=== PATIENT | male | born 1995 | race Caucasian/White ===

== ENCOUNTER 2017-11-30 17:09 | Emergency (ER) | payer OTHER ==
[~2017-11-30] VITALS: Ht 160 cm; Wt 59.0 kg
[2017-11-30] MEDS ORDERED: LIDOCAINE 2% VISCOUS 15 ML UDC PO ONE (17:30)
[2017-11-30] MEDS ORDERED: HYOSCYAMINE 0.125 MG (LEVSIN) TAB SL ONE (17:30)
[2017-11-30] MEDS ORDERED: ANTACID SUSP 30 ML UDC (MYLANTA) PO ONE (17:30)
[2017-11-30] MEDS ORDERED: ONDANSETRON 4 MG (ZOFRAN) ORAL DISSOLVE TAB SL STA (18:29)
[2017-11-30] MEDS ORDERED: ONDA4TAB11 PO (18:36)
[2017-11-30] MEDS ORDERED: SUCR1ORA5 PO (18:36)
--- NOTE | 2017-11-30 18:38 | ED EENT ---
History of Present Illness General Chief Complaint: Oral/Throat Problems Stated Complaint: FOOD STUCK IN THROAT Nursing Triage Note: PT HERE WITH C/O A PIECE OF CHICKEN STUCK IN HIS THROAT FOR 2 DAYS. History of Present Illness Date Seen by Provider: Nov 30, 2017 Time Seen by Provider: 17:30 Initial Comments 22-year-old male seen for food bolus in throat. He reports 2 days ago he was eating chicken and he felt a piece get stuck in his throat. Today he began vomiting and feels like the chicken moved but he can still since something in his throat. He is able to breathe with no difficulty and swallow food and liquids. He has not tried any medications for this and has never had similar symptoms. Timing/Duration: abrupt Location: throat Prearrival Treatment: no prearrival treatment Associated Symptoms: denies symptoms, No cough, No drooling, No sore throat, No voice change Allergies and Home Medications Allergies Coded Allergies: Penicillins (Verified Allergy, Unknown, 11/30/17) Home Medications Ondansetron 4 Mg Tab.rapdis, 4 MG PO Q6H PRN for NAUSEA/VOMITING-1ST LINE, #8 Ref 0 Prescribed by: MARCIO KAY on 11/30/17 183 Sucralfate 1 Gm/10 Ml Oral.susp, 1 GM PO QID, #100 Ref 0 Prescribed by: MARCIO KAY on 11/30/17 183 Review of Systems Constitutional: no symptoms reported, see HPI Throat: see HPI, other (sensation of food bolus in throat) Past Dhzdtbe-Wctngp-Xjzrdx Hx Patient Social History Recent Foreign Travel: No Contact w/Someone Who Travel: No Recent Infectious Disease Expo: No Recent Hopitalizations: No Seasonal Allergies Seasonal Allergies: No Surgeries History of Surgeries: No Respiratory History of Respiratory Disorde: No Cardiovascular History of Cardiac Disorders: No Neurological History of Neurological Disord: No Reproductive System Sexually Transmitted Disease: No HIV/AIDS: No Genitourinary History of Genitourinary Disor: No Gastrointestinal History of Gastrointestinal Di: No Musculoskeletal History of Musculoskeletal Dis: No Endocrine History of Endocrine Disorders: No HEENT History of HEENT Disorders: No Cancer History of Cancer: No Psychosocial History of Psychiatric Problem: No Integumentary History of Skin or Integumenta: No Blood Transfusions History of Blood Disorders: No Adverse Reaction to a Blood Tr: No Reviewed Nursing Assessment Reviewed/Agree w Nursing PMH: Yes Physical Exam Vital Signs Vital Signs - First Documented 11/30/17 17:15 Temp 97.8 Pulse 128 Resp 18 B/P (MAP) 116/86 (96) Pulse Ox 98 O2 Delivery Room Air General Appearance: WD/WN, no apparent distress Nose: normal inspection, No active bleeding, No discharge, other (nares patent) Mouth/Throat: normal mouth inspection, pharynx normal Neck: non-tender, full range of motion, supple, normal inspection Cardiovascular: normal peripheral pulses, regular rate, rhythm Respiratory: chest non-tender, lungs clear, normal breath sounds Gastrointestinal: normal bowel sounds, non tender, soft Neurologic/Psychiatric: no motor/sensory deficits, alert, normal mood/affect, oriented x 3 Skin: normal color, warm/dry Progress/Results/Core Measures Results/Orders My Orders Orders - MARCIO KAY Lidocaine 2% Viscous 15 Ml (Xylocaine Vi (11/30/17 17:30) Antacid Suspension (Mylanta Suspension (11/30/17 17:30) Hyoscyamine Sl Tablet (Levsin Sl Tablet) (11/30/17 17:30) Ondansetron Oral Dissolve Tab (Zofran (11/30/17 18:29) Medications Given in ED Current Medications Medications Dose Ordered Sig/Lazaro Route Start Time Stop Time Status Last Admin Dose Admin Al Hydrox/Mg Hydrox/Simethicone 30 ml ONCE ONCE PO 11/30/17 17:30 11/30/17 17:31 DC 11/30/17 17:40 30 ML Hyoscyamine Sulfate 0.125 mg ONCE ONCE SL 11/30/17 17:30 18 17:31 DC 11/30/17 17:40 0.125 MG Lidocaine HCl 15 ml ONCE ONCE PO 11/30/17 17:30 18 17:31 DC 11/30/17 17:40 15 ML Vital Signs/I&O Vital Sign - Last 12Hours 11/30/17 11/30/17 17:15 18:58 Temp 97.8 97.8 Pulse 128 100 Resp 18 18 B/P (MAP) 116/86 (96) 116/63 (96) Pulse Ox 98 98 O2 Delivery Room Air Blood Pressure Mean: 96 Progress Note : Time: 17:30 Progress Note Initial evaluation completed, recommended labs sent and GI cocktail. Will reevaluate. 1800 patient does not feel as though the food bolus has moved. Continues to have mild nausea, Zofran 4 mg by mouth. [address] Jarvis by phone, recommended trying carefully and reevaluation tomorrow in his office if continued symptoms to schedule EGD. 184 discharge instructions and return precautions reviewed with the patient. All questions answered. Departure Impression Impression: Primary Impression: Bolus impaction of digestive tract Disposition: HOME, SELF-CARE Condition: Stable Departure-Patient Inst. Decision time for Depature: 18:30 Referrals: [facility] (PCP) Primary Care Physician LUDY MCFARLANE MD (Family) Primary Care Physician Patient Instructions: Food Obstruction Add. Discharge Instructions: Increase oral intake and eat soft foods. Return to emergency department if difficulty breathing, inability to swallow food, increased pain or new problems. Call Dr. Jarvis's office tomorrow, [phone] for appointment. All discharge instructions reviewed with patient and/or family. Voiced understanding. Scripts Ondansetron (Ondansetron Odt) 4 Mg Tab.rapdis 4 MG PO Q6H Y for NAUSEA/VOMITING-1ST LINE, #8 TAB 0 Refills Prov: MARCIO KYA 11/30/17 Sucralfate (Carafate) 1 Gm/10 Ml Oral.susp 1 GM PO QID, #100 ML 0 Refills Prov: MARCIO KAY 11/30/17 Copy Copies To 1: LUDY MCFARLANE MD Copies To 2: MICHAEL JARVIS AMY ARNP Nov 30, 2017 18:38
[2017-11-30 18:58] VITALS: BP 116/63
== END 2017-11-30 18:58 | disposition home or self-care (01) ==
LOC: ER 17:12
DX: T18.128A Food in esophagus causing other injury, initial encounter (principal); Z88.0 Allergy status to penicillin
CPT/HCPCS: 99283

== ENCOUNTER → 2017-12-02 | Outpatient (CLI) | payer OTHER ==
[~2017-12-02] MED LIST: ONDA4TAB11 PO; SUCR1ORA5 PO
== END ==
LOC: PREOP 08:59
PROVIDERS: ATTEND Surgery
DX: Z01.818 Encounter for other preprocedural examination (principal); R13.10 Dysphagia, unspecified

== ENCOUNTER 2017-12-07 12:23 | Day surgery (SDC) | payer OTHER ==
[~2017-12-07] VITALS: Ht 160 cm; Wt 59.0 kg
[2017-12-07] MEDS ORDERED: LACTATED RINGERS 1,000 ML IV ONE (12:43)
[2017-12-07] MEDS ORDERED: LACTATED RINGERS 1,000 ML IV STA (12:58)
[2017-12-07] MEDS ORDERED: HURRICAINE EXT TUBE (BENZOCAINE) XX PRN (13:00)
[2017-12-07] MEDS ORDERED: MIDAZOLAM 5 MG/5 ML (VERSED) VIAL ONE (13:04)
[2017-12-07] MEDS ORDERED: proPOfol 200 MG/20 ML (DIPRIVAN) VIAL IV ONE (13:04)
--- NOTE | 2017-12-07 13:07 | Progress Note-Pre Operative ---
Pre-Operative Progress Note H&P Reviewed The H&P was reviewed, patient examined and no changes noted. Date Seen by Provider: Dec 07, 2017 Time Seen by Provider: 13:07 Date H&P Reviewed: Dec 07, 2017 Time H&P Reviewed: 13:07 Pre-Operative Diagnosis: dysphagia MICHAEL LLOYD DO Dec 07, 2017 13:07
--- NOTE | 2017-12-07 13:30 | Progress Note-Post Operative ---
Post-Operative Progess Note Surgeon (s)/Packer And Carry Out (s) Surgeon MICHAEL LLOYD DO Packer And Carry Out: na Pre-Operative Diagnosis dysphagia Post-Operative Diagnosis reflux esophagitis Procedure & Operative Findings Date of Procedure 12/07/17 Procedure Performed/Findings egd c biopsies Anesthesia Type per ironer sock Estimated Blood Loss Estimated blood loss (mL): none Specimens/Packing Specimens Removed antrum, ge junction MICHAEL LLOYD DO Dec 07, 2017 13:30
[2017-12-07] MEDS ORDERED: PANT40TA2 PO (13:31)
--- NOTE | 2017-12-07 13:32 | Discharge Inst-Simple/Standard ---
Discharge Inst-Standard Discharge Medications New, Converted or Re-Newed RX: Transmitted to Pharmacy Patient Instructions/Follow Up Plan of Care/Instructions/FU: 2 weeks Matheus Activity as Tolerated: Yes Discharge Diet: Regular Diet MICHAEL LLOYD DO Dec 07, 2017 13:32
[2017-12-07] MEDS ORDERED: HURRICAINE EXT TUBE (BENZOCAINE) ONE (13:40)
[2017-12-07 13:55] VITALS: BP 103/55
[2017-12-07 14:15] VITALS: BP 109/68
[2017-12-07 14:17] VITALS: BP 118/70
--- NOTE | 2017-12-07 14:18 | Anesthesia-General Post-Op ---
MAC Patient Condition Mental Status/LOC: Same as Preop Cardiovascular: Satisfactory Nausea/Vomiting: Absent Respiratory: Satisfactory Pain: Controlled Complications: Absent Post Op Complications Complications None Follow Up Care/Instructions Patient Instructions None needed. Anesthesiology Discharge Order Discharge Order Patient is doing well, no complaints, stable vital signs, no apparent adverse anesthesia problems. No complications reported per nursing. MELINDA IZAGUIRRE CRNA Dec 07, 2017 14:18
[2017-12-07 14:29] VITALS: BP 118/70
--- NOTE | 2017-12-07 17:59 | OPERATIVE REPORT ---
DATE OF SERVICE: 12/07/2017 PREOPERATIVE DIAGNOSIS: Dysphagia. POSTOPERATIVE DIAGNOSIS: Reflux esophagitis. PROCEDURE PERFORMED: EGD with biopsies. SURGEON: Michael Jarvis DO. ANESTHESIA: Per NEIGHBORHOOD COORDINATOR. ESTIMATED BLOOD LOSS: None. COMPLICATIONS: None. INDICATIONS: The patient is a 22-year-old male with recent history of dysphagia. He understands risks and benefits of procedure and wished to proceed with procedure. Consent was signed and in the chart. DESCRIPTION OF PROCEDURE: The patient was taken to the endoscopy suite, placed in left lateral recumbent position. Timeout was performed. Scope was inserted in mouth, down into esophagus, stomach and into the duodenum without difficulty. There were no polyps, masses or ulcerations within the duodenum. The scope was slowly retracted back into the stomach, which was further insufflated. Some slight erythematous changes present in the stomach where biopsy of the antrum was obtained. Scope was retroflexed noting no other pathology. Scope was returned to its normal position, slowly withdrawn to the distal esophagus which had some slight erythematous changes. Biopsy of the GE junction was obtained. The changes appeared to be reflux esophagitis. Scope was then slowly retracted back until completely removed, noting no other pathologies. The patient tolerated procedure well without any complications and was taken to recovery room in stable condition. RECOMMENDATIONS: The patient will be started on Protonix 40 mg. We will keep him on the Carafate. We will see him back in 2 weeks. Follow up on pathology. If he has any worsening of symptoms, he should be seen at that time. Job ID: [id number] DocumentID: [id number] Dictated Date: 12/07/2017 13:34:31 Commercial Mortgage Broker Date: 12/07/2017 17:59:01 Dictated By: MICHAEL JARVIS DO
== END 2017-12-07 14:35 | disposition home or self-care (01) ==
LOC: ENDO 12:23
PROVIDERS: ATTEND Surgery
DX: K21.0 Gastro-esophageal reflux disease with esophagitis (principal); Z88.0 Allergy status to penicillin; Z88.1 Allergy status to other antibiotic agents; Z87.891 Personal history of nicotine dependence

== ENCOUNTER 2019-06-26 17:21 | Emergency (ER) | payer SELFPAY ==
[~2019-06-26] VITALS: Ht 175.2 cm; Wt 60.0 kg
[~2019-06-26 17:21] MED LIST changes: +PANT40TA2 PO
[2019-06-26] MEDS ORDERED: LACTATED RINGERS 1,000 ML IV ONE (17:32)
--- NOTE | 2019-06-26 17:39 | ED General ---
General Stated Complaint: LIGHTHEADED,SOB Source of Information: Patient History of Present Illness Date Seen by Provider: Jun 26, 2019 Time Seen by Provider: 17:25 Initial Comments PT ARRIVES VIA POV STATES HE WAS AT WORK ( [employer] ), WAS ON [employer] AND WEED EATING, AND AROUND 1445, HE BEGAN TO FEEL LIGHTHEADED, THEN HIS FACE GOT TINGLY, THEN HE COULDN'T TALK, AND STARTED CRYING AND GETTING VERY EMOTIONAL, AND STARTED HAVING A HARD TIME BREATHING, FELT LIKE HE WAS GOING TO PASS OUT--"GOING IN AND OUT OF IT" STATES [place] COMES IN [place] STATES THEN HE STARTED DRINKING WATER, AND THEN HE STARTED SHAKING ALL OVER STATES SYMPTOMS ARE MUCH BETTER NOW THAN HE WAS 20 MINUTES AGO. NO HISTORY OF SIMILAR ADAMANTLY DENIES ANY MEDICATION OR DRUG USE. DENIES ANY USUAL STRESSORS ACTIVITIES TODAY ARE NORMAL FOR HIM. [employer], FROM [place], [place] Allergies and Home Medications Allergies Coded Allergies: Penicillins (Verified Allergy, Unknown, 11/30/17) Home Medications Ondansetron 4 Mg Tab.rapdis, 4 MG PO Q6H PRN for NAUSEA/VOMITING-1ST LINE Prescribed by: MARCIO KAY on 11/30/17 1836 Pantoprazole Sodium 40 Mg Tablet.dr, 40 MG PO DAILY Prescribed by: MICHAEL LLOYD on 12/07/17 1331 Sucralfate 1 Gm/10 Ml Oral.susp, 1 GM PO QID Prescribed by: MARCIO KAY on 11/30/17 1836 Patient Home Medication List Home Medication List Reviewed: Yes Review of Systems Review of Systems Constitutional: see HPI, dizziness EENTM: no symptoms reported Respiratory: see HPI, short of breath Cardiovascular: no symptoms reported Gastrointestinal: no symptoms reported Genitourinary: no symptoms reported Musculoskeletal: no symptoms reported Skin: no symptoms reported Psychiatric/Neurological: See HPI Hematologic/Lymphatic: No Symptoms Reported Immunological/Allergic: no symptoms reported Past Pddsijs-Lnrvqa-Zsdusg Hx Patient Social History Alcohol Use: Regular Use Recreational Drug Use: Yes (THC, AMPHETAMINES/"ADDERALL", COCAINE) Drug of Choice: THC, AMPHETAMINES/"ADDERALL" , COCAINE Smoking Status: Current Someday Smoker Type Used: Cigarettes Recent Foreign Travel: No Contact w/Someone Who Travel: No Recent Hopitalizations: No Seasonal Allergies Seasonal Allergies: No Past Medical History Surgeries: No Respiratory: No Cardiac: No Neurological: No Reproductive Disorders: No Genitourinary: No Gastrointestinal: No Musculoskeletal: No Endocrine: No HEENT: No Cancer: No Psychosocial: No Integumentary: No Blood Disorders: No Adverse Reaction/Blood Tranf: No Physical Exam Vital Signs Vital Signs - First Documented 06/26/19 17:26 Temp 37.3 Pulse 93 Resp 18 B/P (MAP) 141/76 (97) Pulse Ox 98 O2 Delivery Room Air Capillary Refill : Height, Weight, BMI Height: 5'3.00" Weight: 130lbs. 0.0oz. 58.618606dw; 23.0 BMI Method:Stated General Appearance: No Apparent Distress, Anxious (VERY ANXIOUS, TALKING VERY RAPIDLY AND NON-STOP AT GREAT LENGTH), Thin, Other (CONSTANT MOVEMENTS, CANNOT SIT OR LAY STILL) Neck: Full Range of Motion, Normal Inspection, Non Tender, Supple Respiratory: Normal Breath Sounds, No Accessory Muscle Use, No Respiratory Distress Cardiovascular: Regular Rate, Rhythm, No Edema, No JVD, No Murmur, Normal Peripheral Pulses Gastrointestinal: Normal Bowel Sounds, No Organomegaly, No Pulsatile Mass, Non Tender, Soft Back: No CVA Tenderness Extremity: Normal Capillary Refill, Normal Inspection, Normal Range of Motion, Non Tender, No Calf Tenderness, No Pedal Edema Neurologic/Psychiatric: Alert, Oriented x3, No Motor/Sensory Deficits, floor finisher helper II- XII Norm as Tested Skin: Normal Color, Warm/Dry Progress/Results/Core Measures Suspected Sepsis SIRS Temperature: Pulse: Respiratory Rate: Laboratory Tests 06/26/19 17:34: White Blood Count 10.9 Blood Pressure / Mean: Laboratory Tests 06/26/19 17:34: Creatinine 1.23, Platelet Count 372, Total Bilirubin 1.1H Results/Orders Lab Results Laboratory Tests Test 06/26/19 17:34 06/26/19 17:42 Range/Units White Blood Count 10.9 4.3-11.0 10^3/uL Red Blood Count 5.44 4.35-5.85 10^6/uL Hemoglobin 15.8 13.3-17.7 G/DL Hematocrit 45 40-54 % Mean Corpuscular Volume 83 80-99 FL Mean Corpuscular Hemoglobin 29 25-34 PG Mean Corpuscular Hemoglobin Concent 35 32-36 G/DL Red Cell Distribution Width 12.8 10.0-14.5 % Platelet Count 372 130-400 10^3/uL Mean Platelet Volume 9.8 7.4-10.4 FL Neutrophils (%) (Auto) 67 42-75 % Lymphocytes (%) (Auto) 22 12-44 % Monocytes (%) (Auto) 9 0-12 % Eosinophils (%) (Auto) 1 0-10 % Basophils (%) (Auto) 1 0-10 % Neutrophils # (Auto) 7.3 1.8-7.8 X 10^3 Lymphocytes # (Auto) 2.4 1.0-4.0 X 10^3 Monocytes # (Auto) 1.0 0.0-1.0 X 10^3 Eosinophils # (Auto) 0.1 0.0-0.3 10^3/uL Basophils # (Auto) 0.1 0.0-0.1 10^3/uL Sodium Level 139 135-145 MMOL/L Potassium Level 3.9 3.6-5.0 MMOL/L Chloride Level 104 98-107 MMOL/L Carbon Dioxide Level 23 21-32 MMOL/L Anion Gap 12 5-14 MMOL/L Blood Urea Nitrogen 16 7-18 MG/DL Creatinine 1.23 0.60-1.30 MG/DL Estimat Glomerular Filtration Rate > 60 BUN/Creatinine Ratio 13 Glucose Level 80 70-105 MG/DL Calcium Level 9.7 8.5-10.1 MG/DL Corrected Calcium 8.5-10.1 MG/DL Magnesium Level 1.8 1.6-2.4 MG/DL Total Bilirubin 1.1 H 0.1-1.0 MG/DL Aspartate Amino Transf (AST/SGOT) 25 5-34 U/L Alanine Aminotransferase (ALT/SGPT) 14 0-55 U/L Alkaline Phosphatase 64 40-136 U/L Total Protein 7.5 6.4-8.2 GM/DL Albumin 4.8 H 3.2-4.5 GM/DL TSH Bartholomew Testing 2.23 0.35-4.94 UIU/ML Serum Alcohol < 10 <10 MG/DL Urine Color YELLOW Urine Clarity CLEAR Urine pH 7 5-9 Urine Specific [place] 1.010 L 1.016-1.022 Urine Protein 2+ H NEGATIVE Urine Glucose (UA) NEGATIVE NEGATIVE Urine Ketones NEGATIVE NEGATIVE Urine Nitrite NEGATIVE NEGATIVE Urine Bilirubin NEGATIVE NEGATIVE Urine Urobilinogen NORMAL NORMAL MG/DL Urine Leukocyte Esterase NEGATIVE NEGATIVE Urine RBC (Auto) NEGATIVE NEGATIVE Urine RBC NONE /HPF Urine WBC NONE /HPF Urine Squamous Epithelial Cells RARE /HPF Urine Crystals NONE /LPF Urine Bacteria TRACE /HPF Urine Casts NONE /LPF Urine Mucus MODERATE H /LPF Urine Culture Indicated NO Urine Opiates Screen NEGATIVE NEGATIVE Urine Oxycodone Screen NEGATIVE NEGATIVE Urine Methadone Screen NEGATIVE NEGATIVE Urine Propoxyphene Screen NEGATIVE NEGATIVE Urine Barbiturates Screen NEGATIVE NEGATIVE Ur Tricyclic Antidepressants Screen NEGATIVE NEGATIVE Urine Phencyclidine Screen NEGATIVE NEGATIVE Urine Amphetamines Screen POSITIVE H NEGATIVE Urine Methamphetamines Screen NEGATIVE NEGATIVE Urine Benzodiazepines Screen NEGATIVE NEGATIVE Urine Cocaine Screen POSITIVE H NEGATIVE Urine Cannabinoids Screen POSITIVE H NEGATIVE My Orders Orders - MARBELLA DOE DO Ed Iv/Invasive Line Start (06/26/19 17:32) Ekg Tracing (06/26/19 17:32) Monitor-Rhythm Ecg Trace Only (06/26/19 17:32) Alcohol (06/26/19 17:32) Cbc With Automated Diff (06/26/19 17:32) Comprehensive Metabolic Panel (06/26/19 17:32) Drug Screen Stat (Urine) (06/26/19 17:32) Magnesium (06/26/19 17:32) Thyroid Analyzer (06/26/19 17:32) Ua Culture If Indicated (06/26/19 17:32) Ed Iv/Invasive Line Start (06/26/19 17:32) Lactated Ringers (Lr 1000 Ml Iv Solution (06/26/19 17:32) Medications Given in ED Current Medications Medications Dose Ordered Sig/Lazaro Route Start Time Stop Time Status Last Admin Dose Admin Lactated Ringer's 1,000 ml @ 0 mls/hr Q0M ONCE IV 06/26/19 17:32 06/26/19 17:34 DC 06/26/19 17:42 1,000 MLS/HR Vital Signs/I&O 06/26/19 17:26 Temp 37.3 Pulse 93 Resp 18 B/P (MAP) 141/76 (97) Pulse Ox 98 O2 Delivery Room Air Capillary Refill : Progress Note : Progress Note PT HAD NO SYMPTOMS DURING ER STAY ON REVIEWING TEST RESULTS AND AGAIN DIRECT QUESTIONING HIM ABOUT DRUG USE, HE NOW ADMITS TO USING COCAINE " 4 DAYS AGO", THEN STATES HE USED "ADDERALL" " A WEEK AGO"--DENIES IV USE. STATES HE SNORTS IT. VERY ADAMANTLY STRESSED THE SERIOUSNESS OF HIS ACTIONS /CHOICES HE HAS MADE, AND THAT THE DRUGS HE HAS BEEN USING ARE DEADLY. PT IS VERY NON-CHALANT IN HIS ATTITUDE TOWARDS THESE DRUGS--STATES "I REALLY DIDN'T THINK ANYTHING ABOUT IT" AND ADMITS THAT HE USES ON A FAIRLY FREQUENT BASIS. STATES HE WAS DRINKING ALOT AND USING MULTIPLE DRUGS OVER THE WEEKEND. INFORMATION ON SUBSTANCE ABUSE TREATMENT WAS GIVEN TO HIM ECG Initial ECG Impression Date: Jun 26, 2019 Initial ECG Impression Time: 17:38 Initial ECG Rate: 81 Initial ECG Rhythm: Normal Sinus Departure Impression Primary Impression: ILLICIT DRUG USE, INCLUDING COCAINE, AMPHETAMINES, THC Additional Impression: ANXIETY HYPERVENTILATION DUE TO ILLICIT DRUG USE Disposition: 01 HOME, SELF-CARE Condition: Stable Departure-Patient Inst. Referrals: [facility] (PCP) Primary Care Physician Patient Instructions: Amphetamine, Cocaine Use Disorder, Drug Abuse and Drug Addiction (DC), Marijuana Use and Addiction (DC), Polysubstance Abuse (DC), Prescription Drug Abuse (DC) Add. Discharge Instructions: NO DRUGS!!!!!! INCREASE YOUR FLUID INTAKE--WATER AND GATORADE WHEN YOU ARE IN THE HEAT FOLLOW UP WITH [facility] THIS WEEK FOR FURTHER CARE MARBELLA DOE DO Jun 26, 2019 17:39
[2019-06-26 17:44] LABS: BASOPHILS # (AUTO) 0.1 10^3/uL (0.0-0.1); BASOPHILS % (AUTO) 1 % (0-10); EOSINOPHILS # (AUTO) 0.1 10^3/uL (0.0-0.3); EOSINOPHILS % (AUTO) 1 % (0-10); HEMATOCRIT 45 % (40-54); HEMOGLOBIN 15.8 G/DL (13.3-17.7); LYMPHOCYTES # (AUTO) 2.4 X 10^3 (1.0-4.0); LYMPHOCYTES % (AUTO) 22 % (12-44); MEAN CORPUSCULAR HEMOGLOBIN 29 PG (25-34); MEAN CORPUSCULAR HGB CONC 35 G/DL (32-36); MEAN CORPUSCULAR VOLUME 83 FL (80-99); MEAN PLATELET VOLUME 9.8 FL (7.4-10.4); MONOCYTES % (AUTO) 9 % (0-12); NEUTROPHILS # (AUTO) 7.3 X 10^3 (1.8-7.8); NEUTROPHILS % (AUTO) 67 % (42-75); PLATELET COUNT 372 10^3/uL (130-400); RED CELL DISTRIBUTION WIDTH 12.8 % (10.0-14.5); WHITE BLOOD COUNT 10.9 10^3/uL (4.3-11.0)
[2019-06-26 17:50] LABS: BILIRUBIN,URINE NEGATIVE (NEGATIVE); CLARITY,URINE CLEAR; COLOR,URINE YELLOW; GLUCOSE, URINE (UA) NEGATIVE (NEGATIVE); KETONES,URINE NEGATIVE (NEGATIVE); LEUKOCYTE ESTERASE ,URINE NEGATIVE (NEGATIVE); NITRITE,URINE NEGATIVE (NEGATIVE); PH,URINE 7 (5-9); PROTEIN,URINE 2+ (NEGATIVE); UROBILINOGEN,URINE NORMAL (NORMAL)
[2019-06-26 17:56] LABS: BACTERIA,URINE TRACE /HPF; SQUAMOUS EPITHELIAL CELL,UR RARE /HPF
[2019-06-26 18:01] LABS: AMPHETAMINE SCREEN, URINE POSITIVE (NEGATIVE); BARBITURATE SCREEN URINE NEGATIVE (NEGATIVE); BENZODIAZEPINES SCREEN URINE NEGATIVE (NEGATIVE); CANNABINOID SCREEN, URINE POSITIVE (NEGATIVE); COCAINE SCREEN URINE POSITIVE (NEGATIVE); METHADONE STAT NEGATIVE (NEGATIVE); METHAMPHETAMINE SCREEN URINE S NEGATIVE (NEGATIVE); OPIATE SCREEN URINE NEGATIVE (NEGATIVE); OXYCODONE STAT NEGATIVE (NEGATIVE); PROPOXYPHENE STAT NEGATIVE (NEGATIVE); TRICYCLIC ANTIDEPRESSANTS SCRE NEGATIVE (NEGATIVE)
[2019-06-26 18:17] LABS: ALANINE AMINOTRANSFERASE 14 U/L (0-55); ALBUMIN 4.8 GM/DL (3.2-4.5); ALKALINE PHOSPHATASE 64 U/L (40-136); BUN/CREATININE RATIO 13; CALCIUM 9.7 MG/DL (8.5-10.1); CARBON DIOXIDE 23 MMOL/L (21-32); CHLORIDE 104 MMOL/L (98-107); CREATININE SERUM 1.23 MG/DL (0.60-1.30); GFR ESTIMATED > 60; GLUCOSE 80 MG/DL (70-105); MAGNESIUM 1.8 MG/DL (1.6-2.4); POTASSIUM 3.9 MMOL/L (3.6-5.0); SODIUM 139 MMOL/L (135-145); TOTAL PROTEIN 7.5 GM/DL (6.4-8.2)
[2019-06-26 18:36] LABS: BILIRUBIN,TOTAL 1.1 MG/DL (0.1-1.0)
[2019-06-26 18:37] LABS: TSH (THYROID ANALYZER) 2.23 UIU/ML (0.35-4.94)
[2019-06-26 18:50] VITALS: BP 137/82
== END 2019-06-26 18:53 | disposition home or self-care (01) ==
LOC: EDUNIT# 17:21 → ER 17:22
DX: F14.959 Cocaine use, unspecified with cocaine-induced psychotic disorder, unspecified (principal); F15.959 Other stimulant use, unspecified with stimulant-induced psychotic disorder, unspecified; F11.988 Opioid use, unspecified with other opioid-induced disorder; F45.8 Other somatoform disorders; F17.210 Nicotine dependence, cigarettes, uncomplicated; Z88.0 Allergy status to penicillin
CPT/HCPCS: 36415; 80053; 80306; 80320; 81000; 83735; 84443; 85025; 93005; 93041; 96360